=== PATIENT | male | born 1970 | race Caucasian/White ===

== ENCOUNTER 2016-12-03 09:21 | Inpatient (IN) | payer OTHER ==
[~2016-12-03 09:21] MED LIST: GLIMEPIRIDE2 M1 PO; LIPITOR20 M1 PO; NOVOLIN 70100 UNITS/ SC; PRINIVIL20 M1 PO
[2016-12-04 06:10] LABS: ANION GAP 12 mmol/L (0-20); BLOOD UREA NITROGEN 13 mg/dl (6-24); CALCIUM 8.8 mg/dl (8.5-10.5); CARBON DIOXIDE-VENOUS 29 mmol/L (22-32); CHLORIDE 102 mmol/l (96-110); CREATININE 0.95 mg/dl (0.60-1.30); GLUCOSE 276 mg/dL (70-110); POTASSIUM 4.9 mmol/L (3.7-5.1); SODIUM 138 mmol/L (135-145); eGFR VALUE FOR BLACK >90 mL/Min
[2016-12-05] MEDS ORDERED: ROBAXIN-750750 M1 PO (11:46)
[2016-12-05] MEDS ORDERED: NORCO 5-325 TA1 EACH PO (11:49)
[2016-12-05] MEDS ORDERED: SENOKOT-S TABL1 EACH PO (11:53)
== END 2016-12-05 12:45 | DRG 460 ==
LOC: SHSB 09:21 → ORE 11:24 → PACU 14:48 → 5EA 16:15
PROVIDERS: Hospitalist; ADMIT Neurological Surgery
PROC: 0SG30AJ Fusion of Lumbosacral Joint with Interbody Fusion Device, Posterior Approach, Anterior Column, Open Approach (ICD-10-PCS; principal; 2016-12-03)
PROC: 0SB40ZZ Excision of Lumbosacral Disc, Open Approach (ICD-10-PCS; 2016-12-03)
PROC: 01NB0ZZ Release Lumbar Nerve, Open Approach (ICD-10-PCS; 2016-12-03)
PROC: 07DR0ZZ Extraction of Iliac Bone Marrow, Open Approach (ICD-10-PCS; 2016-12-03)
DX: M43.06 Spondylolysis, lumbar region (principal); I10 Essential (primary) hypertension; M43.16 Spondylolisthesis, lumbar region; M54.16 Radiculopathy, lumbar region; E11.9 Type 2 diabetes mellitus without complications; E78.5 Hyperlipidemia, unspecified; Z79.82 Long term (current) use of aspirin; Z79.84 Long term (current) use of oral hypoglycemic drugs; M48.06 Spinal stenosis, lumbar region; F17.210 Nicotine dependence, cigarettes, uncomplicated; E66.9 Obesity, unspecified; Z68.34 Body mass index [BMI] 34.0-34.9, adult
CPT/HCPCS: C1713; J0690; J1170; J1815; J2800; J3370